=== PATIENT | male | born 1995 | race African-American/Black ===

== ENCOUNTER 2019-04-09 01:55 | Emergency (ER) | payer OTHER ==
[~2019-04-09] VITALS: Ht 175.3 cm; Wt 100.0 kg
[2019-04-09 02:08] VITALS: BP 145/86
[2019-04-09] MEDS ORDERED: IBUPROFEN 600MG TABLET PO ONE (03:30)
== END 2019-04-09 04:40 | disposition home or self-care (01) ==
LOC: ER 01:55
DX: S90.32XA Contusion of left foot, initial encounter (principal); J45.909 Unspecified asthma, uncomplicated; V09.9XXA Pedestrian injured in unspecified transport accident, initial encounter; Y93.89 Activity, other specified; Y92.89 Other specified places as the place of occurrence of the external cause; Y99.8 Other external cause status
CPT/HCPCS: 73630; 99283